=== PATIENT | female | born 1955 | race Two or more races ===

== ENCOUNTER 2025-02-07 07:00 | Day surgery (SDC) | payer OTHER ==
[~2025-02-07 07:00] MED LIST: IRBESARTAN-HCT1 EACH PO; SYMBICORT 16010.2 GM
[2025-02-07] MEDS ORDERED: CEFAZOLIN SODIUM 1,000 MG VIAL ONE ×2 (08:18→09:25)
[2025-02-07] MEDS ORDERED: GENTAMICIN SULFATE 40 MG/ML VIAL ONE (09:24)
[2025-02-07] MEDS ORDERED: MACROBID 100 M100 MG PO (10:41)
[2025-02-07] MEDS ORDERED: TRAM1TAB98 PO (10:41)
== END 2025-02-07 16:00 | disposition home or self-care (01) ==
LOC: CIR.AMB 07:00
PROVIDERS: ATTEND Obstetrics & Gynecology Gynecology
DX: N81.11 Cystocele, midline (principal); Z91.041 Radiographic dye allergy status